=== PATIENT | male | born 1940 | race Caucasian/White ===

== ENCOUNTER → 2016-10-25 | Outpatient (CLI) | payer MEDICARE ==
[~2016-10-25] MED LIST: ENOX40P SQ; LISI-360 PO; NORC7.5T PO; OCUVTAB PO; Z.0.COMMODE-3:1; Z.0.WALKERFRONT
[2016-10-25 17:30] LABS: MEAN CELL VOLUME 87.5 FL (80.0-100.0); MEAN CORPUSCULAR HEMOGLOBIN 29.5 PG (27.0-34.0); MEAN CORPUSCULAR HGB CONC 33.8 % (32.0-36.0); PLATELET COUNT 233 TH/MM3 (150-450); RED BLOOD COUNT 5.37 MIL/MM3 (4.50-5.90); RED CELL DISTRIBUTION WIDTH 15.1 % (11.6-17.2); REVIEW FLAG FINAL
== END ==
LOC: PLAB 15:39
PROVIDERS: ATTEND Family Medicine
DX: R53.83 Other fatigue (principal)
CPT/HCPCS: 36415; 85027

== ENCOUNTER → 2017-08-05 | Outpatient (CLI) | payer MEDICARE ==
[2017-08-05 09:40] LABS: MEAN CELL VOLUME 92.2 FL (80.0-100.0); MEAN CORPUSCULAR HEMOGLOBIN 31.5 PG (27.0-34.0); MEAN CORPUSCULAR HGB CONC 34.2 % (32.0-36.0); PLATELET COUNT 219 TH/MM3 (150-450); RED BLOOD COUNT 5.32 MIL/MM3 (4.50-5.90); WHITE BLOOD COUNT 5.8 TH/MM3 (4.0-11.0)
[2017-08-05 09:43] LABS: REVIEW FLAG FINAL
[2017-08-05 10:04] LABS: ANION GAP 6 MEQ/L (5-15); AST (GOT) 23 U/L (15-37); BICARBONATE 27.5 MEQ/L (21.0-32.0); BLOOD UREA NITROGEN 21 MG/DL (7-18); CHLORIDE 107 MEQ/L (98-107); GLOMERULAR FILTRATION RATE 50 ML/MIN (>89); GLUCOSE,FASTING 103 MG/DL (74-99); POTASSIUM 4.5 MEQ/L (3.5-5.1); SODIUM (NA) 140 MEQ/L (136-145)
[2017-08-05 10:17] LABS: ALKALINE PHOSPHATASE 35 U/L (45-117); ALT (GPT) 29 U/L (12-78); HDL CHOLESTEROL 86.9 MG/DL (40.0-60.0); LDL CHOLESTEROL 102 MG/DL (0-99); LDL CHOLESTEROL DIRECT 106 MG/DL (0-99)
== END ==
LOC: PLAB 06:37
PROVIDERS: ATTEND Family Medicine
DX: R53.83 Other fatigue (principal); E78.5 Hyperlipidemia, unspecified; I10 Essential (primary) hypertension; I26.99 Other pulmonary embolism without acute cor pulmonale
CPT/HCPCS: 36415; 80053; 80061; 83721; 84443; 85027

== ENCOUNTER → 2017-09-07 | Outpatient (CLI) | payer MEDICARE ==
--- NOTE | 2017-09-07 11:56 | RSPPFT ---
DATE OF PROCEDURE: 09/07/17 COMMENTS: VOLUMES DYNAMIC: FVC and FEV1 normal. STATIC: RV mildly reduced; FRC and TLC normal. FLOWS: FEV1% normal; FEF 25-75 normal. DIFFUSION: Normal. FLOW VOLUME LOOP: Normal configuration. IMPRESSION: Essentially normal pulmonary functions with no significant obstruction or restriction. Diffusion is normal. No improvements post-bronchodilator.
== END ==
LOC: PHRSP 07:30
PROVIDERS: ATTEND Internal Medicine
DX: R06.02 Shortness of breath (principal)
CPT/HCPCS: 94060; 94618; 94726; 94729